=== PATIENT | female | born 1945 | race Caucasian/White ===

== ENCOUNTER 2020-04-03 13:18 | Emergency (ER) | payer OTHER, MEDICAID, SELFPAY ==
[~2020-04-03] VITALS: Ht 162.6 cm; Wt 81.6 kg
[2020-04-03 13:23] VITALS: BP 160/42
--- NOTE | 2020-04-03 13:23 | NUR ---
PT BIB [facility]/ CARE TO ER BED 7
--- NOTE | 2020-04-03 13:25 | NUR ---
75 Y/O FEMALE BIBA ALS FOR CHEST PAIN AND BRADYCARDIA THAT STARTED TODAY. PER EMS THE FACILITY STATED HER BRADYCARDIA BEGAN TODAY. STATES 10 SHARP CHEST PAIN AT THIS TIME. RR EVEN AND UNLABORED. PER EMS PT RECEIVED DOUBLE DIALYSIS YESTERDAY, THEN BEGAN BEING ALLEN THIS MORNING. PLACED ON REAL ESTATE VALUER, PULSE OX, AND BP CUFF.
[2020-04-03] MEDS ORDERED: NACL 0.9% 500 ML IV ONE (13:30)
[2020-04-03] MEDS ORDERED: ATROPINE 1 MG/10 ML SYR IVP ONE (13:39)
[2020-04-03] MEDS ORDERED: ATROPINE 0.5 MG/5 ML SYR IVP ONE ×2 (13:40→15:05)
--- NOTE | 2020-04-03 13:48 | NUR ---
PATIENT TAKEN TO CT VIA [facility] ACCOMPANIED BY SHARA UMANZOR ON CARDIAC MONITORING.
--- NOTE | 2020-04-03 14:12 | NUR ---
HOB ELEVATED, PT POSITIONED FOR COMFORT. RR EVEN AND UNLABORED. PT REMAINS BRADYCARDIC.
--- NOTE | 2020-04-03 14:25 | NUR ---
LAB AT BEDSIDE FOR BLOOD DRAW.
--- NOTE | 2020-04-03 14:30 | NUR ---
FLU SWAB AND RSV SWAB COLLECTED AND SENT TO LAB.
[2020-04-03] MEDS ORDERED: MORPHINE SULFATE 2 MG/ML SYR IVP ONE (14:45)
[2020-04-03 14:46] LABS: BASOPHILS # (AUTO) 0.2 K/uL (0.00-0.22); BASOPHILS % (AUTO) 1.5 % (0.0-2.0); EOSINOPHILS # (AUTO) 0.2 K/uL (0-0.4); EOSINOPHILS % (AUTO) 2.1 % (0.0-4.0); HEMATOCRIT 35.5 % (36-48); HEMOGLOBIN 11.2 g/dL (12.0-16.0); LYMPHOCYTES # (AUTO) 2.4 K/uL (2.5-16.5); LYMPHOCYTES % (AUTO) 23.5 % (20.5-51.1); MEAN CORPUSCULAR HEMOGLOBIN 29 pg (27-31); MEAN CORPUSCULAR HGB CONC 32 g/dL (33-37); MEAN CORPUSCULAR VOLUME 91.9 fL (80-94); MONOCYTES # (AUTO) 0.7 K/uL (0.8-1.0); MONOCYTES % (AUTO) 7.1 % (1.7-9.3); NEUTROPHILS # (AUTO) 6.8 K/uL (1.8-7.7); NEUTROPHILS % (AUTO) 65.8 % (42.2-75.2); PLATELET COUNT (AUTO) 190 K/uL (140-450); RED BLOOD CELL COUNT(AUTO) 3.86 MIL/uL (4.20-5.40); RED CELL DISTRIBUTION WIDTH 17.1 % (11.6-13.7); WHITE BLOOD COUNT (AUTO) 10.3 K/uL (4.8-10.8)
[2020-04-03 14:55] LABS: C-REACTIVE PROTEIN QUANT 3.7 mg/dL (0.0-0.9)
[2020-04-03 15:01] LABS: LACTATE DEHYDROGENASE 111 U/L (81-234)
--- NOTE | 2020-04-03 15:15 | NUR ---
Patient to be transferred to [facility]. Is being transferred due to HIGHER LEVEL OF CARE. Receiving facility has accepting physician and available space. ER physician has signed transfer form. Patient or responsible republican has agreed to transfer and signed form. Patient belongings inventoried and will be sent with patient. Copy of nursing notes, lab reports, EKG, Physicians Orders and X-rays to be sent with patient. Report called to SHARA ARMSTRONG at receiving facility. [facility] ambulance service has been called for transfer.
--- NOTE | 2020-04-03 15:15 | NUR ---
REPORT CALLED TO [facility], SPOKE TO SHARA ARMSTRONG
--- NOTE | 2020-04-03 15:18 | NUR ---
[facility] AT BEDSIDE FOR TRANSFER TO [place].
[2020-04-03 15:22] VITALS: BP 160/42
[2020-04-03 15:30] LABS: ALBUMIN 2.6 g/dL (3.4-5.0); ANION GAP 11.1 (8-16); ASPARTATE AMINOTRANSFERASE 16 U/L (15-37); CARBON DIOXIDE 31.5 mmol/L (21-32); CHLORIDE 99 mmol/L (98-107); CREATININE 2.4 mg/dL (0.6-1.3); GLUCOSE 119 mg/dL (74-106); POTASSIUM 4.6 mmol/L (3.5-5.1); SODIUM SERUM 137 mmol/L (136-145); TOTAL BILIRUBIN 0.4 mg/dL (0.0-1.0); UREA NITROGEN, BLOOD 43 mg/dL (7-18)
[2020-04-03 15:43] LABS: RSV NEGATIVE (NEGATIVE)
[2020-04-03 16:59] LABS: APPEARANCE,URINE SL CLOUDY (CLEAR); BILIRUBIN,URINE NEGATIVE (NEGATIVE); BLOOD, URINE 3+ (NEGATIVE); COLOR,URINE YELLOW (YELLOW); LEUKOCYTE ESTERASE ,URINE 3+ (NEGATIVE); NITRITE, URINE NEGATIVE (NEGATIVE); PH,URINE 6.5 (5.0-9.0); UGLUCOSE NEGATIVE (NEGATIVE)
[2020-04-03 17:16] LABS: RBC,URINE 11-20 (MOD) /HPF (0-5); WBC,URINE 80-100 /HPF (0-5)
== END 2020-04-03 15:18 | disposition short-term general hospital (02) ==
LOC: EEVIPCON 13:18 → MED 13:18
DX: S22.32XA Fracture of one rib, left side, initial encounter for closed fracture (principal); I44.1 Atrioventricular block, second degree; R79.89 Other specified abnormal findings of blood chemistry; I50.9 Heart failure, unspecified; N28.9 Disorder of kidney and ureter, unspecified; I10 Essential (primary) hypertension; Z88.2 Allergy status to sulfonamides; Z88.5 Allergy status to narcotic agent; X58.XXXA Exposure to other specified factors, initial encounter; Y93.89 Activity, other specified; Y92.89 Other specified places as the place of occurrence of the external cause; Y99.8 Other external cause status
CPT/HCPCS: 36415; 71045; 71250; 74176; 80053; 81001; 82550; 82728; 83605; 83615; 83880; 84484; 85025; 85379; 85384; 85610; 85730; 86140; 87040; 87086; 87420; 87804; 93005; 96374; 96375; 96376; 99291; J0461; J2270; J7030; Q0092; U0003